=== PATIENT | female | born 2005 | race Caucasian/White ===

== ENCOUNTER 2023-08-10 23:30 | Emergency (ER) | payer BC, OTHER ==
[~2023-08-10] VITALS: Ht 165.1 cm; Wt 85.9 kg
[2023-08-10 23:36] VITALS: TEMP 98.1
[2023-08-10 23:51] LABS: COLLECTION METHOD CLEAN CATCH
[2023-08-11 00:01] LABS: PH 5.5 (5.0-8.5); URINE APPEARANCE Hazy (CLEAR/HAZY); URINE BLOOD 1+ (NEGATIVE); URINE COLOR Yellow (YELLOW); URINE GLUCOSE Negative (NEGATIVE); URINE KETONE Negative (NEGATIVE); URINE NITRATE Negative (NEGATIVE); URINE PROTEIN(semi-quant) 1+ (NEGATIVE); URINE UROBILINOGEN 0.2 E.U/dL (0.2-1.0)
[2023-08-11 00:02] LABS: MUCOUS Present (NOT PRESENT); URINE BACTERIA None Seen /hpf (NONE SEEN)
[2023-08-11 00:08] LABS: TRICYCLIC ANTIDEPRESS URINE NEGATIVE
[2023-08-11 00:12] LABS: BASO % 0.6 % (0.0-2.0); EOS # 0.2 K/mm3 (0.0-0.7); EOS % 2.6 % (0.0-4.0); GRAN # 5.3 K/mm3 (1.4-6.5); GRAN % 79.9 % (42.2-75.2); HEMATOCRIT 45.3 % (35.0-45.0); LYMPH # 0.8 K/mm3 (1.2-3.4); LYMPH % 11.8 % (20.0-51.0); MEAN CELL VOLUME 85 fl (80.0-95.0); MEAN CORPUSCULAR HEMOGLOBIN 28 pg (26-32); MEAN CORPUSCULAR HGB CONC 33 g/dl (33.0-37.0); MEAN PLATELET VOLUME 10.9 fl (7.4-10.4); MONO # 0.3 K/mm3 (0.1-0.6); MONO % 3.9 % (1.7-9.3); PLATELET COUNT 266 K/mm3 (130-400); RED BLOOD COUNT 5.33 M/mm3 (4.10-5.30)
[2023-08-11 00:23] LABS: ALBUMIN 4.2 gm/dL (3.5-5.0); BILIRUBIN,TOTAL 1.1 mg/dL (0.2-1.2); CALCIUM 9.6 mg/dL (8.4-10.2); CREATININE, serum 0.97 mg/dL (0.57-1.11); POTASSIUM 3.7 mmol/L (3.5-4.5); TOTAL PROTEIN 7.9 gm/dL (6.2-8.1)
[2023-08-11] MEDS ORDERED: MACROBID 1100 MG/CAP PO (01:45)
[2023-08-11] MEDS ORDERED: BENTYL 20MG20 MG/TAB PO (01:49)
[2023-08-11 02:00] VITALS: BP 123/67; PULSE 82
== END 2023-08-11 02:00 | disposition home or self-care (01) ==
LOC: COL.ER 23:30
PROVIDERS: Emergency Medicine
DX: A08.4 Viral intestinal infection, unspecified (principal); K37 Unspecified appendicitis; N39.0 Urinary tract infection, site not specified
CPT/HCPCS: J0696; J7030